=== PATIENT | male | born 1990 | race Caucasian/White ===

== ENCOUNTER 2022-01-05 03:48 | Emergency (ER) | payer OTHER ==
[2022-01-05] MEDS ORDERED: predniSONE 20 MG Tab PO ONE (04:17)
== END 2022-01-05 04:42 | disposition home or self-care (01) ==
LOC: JP.ED 03:48
DX: J45.21 Mild intermittent asthma with (acute) exacerbation (principal); R19.7 Diarrhea, unspecified; Z88.2 Allergy status to sulfonamides; Z86.16 Personal history of COVID-19
CPT/HCPCS: 99282; 99284; J7512

== ENCOUNTER 2022-01-09 08:37 | Emergency (ER) | payer OTHER ==
[2022-01-09] MEDS ORDERED: Lidocaine 1% 5 ML VIAL INJECT ONE (08:38)
[2022-01-09] MEDS ORDERED: Diphtheria,Pertussis(Acell),Tetanus Vaccine 0.5 ML Syringe IM ONE (08:41)
== END 2022-01-09 09:24 | disposition home or self-care (01) ==
LOC: JP.ED 08:37
DX: S60.352A Superficial foreign body of left thumb, initial encounter (principal); Z88.2 Allergy status to sulfonamides; Z86.16 Personal history of COVID-19; Z23 Encounter for immunization; W45.8XXA Other foreign body or object entering through skin, initial encounter
CPT/HCPCS: 64450; 90471; 90715; 99281; 99283